=== PATIENT | female | born 1935 | race Caucasian/White ===

== ENCOUNTER 2017-06-13 10:50 | Outpatient (RCR) | payer MEDICARE, BC ==
[~2017-06-13] VITALS: Ht 160 cm; Wt 83.2 kg
[~2017-06-13 10:50] MED LIST: MULTIPLE VITAMI1 TAB PO; PRILOSEC 20MG20 MG PO
[2017-06-13] MEDS ORDERED: POLY-IRON 150150 MG PO (11:07)
[2017-06-13 11:10] VITALS: BP 124/60
[2017-06-13 13:00] VITALS: BP 130/70
[2017-06-16 10:51] VITALS: BP 123/72
[2017-06-16 12:06] VITALS: BP 136/63
[2017-06-19 10:56] VITALS: BP 120/63
[2017-06-22 11:20] VITALS: BP 140/67
[2017-06-22 12:10] VITALS: BP 147/78
--- NOTE | 2017-06-22 12:11 | NUR ---
AFTER IV DC'D, COTTON BALL TO SITE, PATIENT IMMEDIATELY WALKED TO BATHROOM AND DRIPPING BLOOD WAS NOTED, AGAIN DIRECT PRESSURE TO IV SITE WHICH EASILY STOPPED THE BLEEDING, PATIENT INFORMED TO REMOVE COBAN AFTER ABOUT 5 MINS, THERE IS NO FURTHER BLEEDING NOTED, SHE IS DISMISSED AMBULAOTRY TO CARE OF FAMILY
== END 2017-06-22 13:00 | disposition home or self-care (01) ==
LOC: AMSURD 10:50 → EDSTATUS 11:02 → AMSURD 06-22 13:00
DX: D50.0 Iron deficiency anemia secondary to blood loss (chronic) (principal)
CPT/HCPCS: J2916; J7050

== ENCOUNTER → 2017-07-03 | Outpatient (CLI) | payer MEDICARE, BC ==
[2017-06-22 12:10] VITALS: BP 147/78
[~2017-07-03] MED LIST changes: +POLY-IRON 150150 MG PO
[2017-07-03 18:36] LABS: EOS # 0.1 (0.04-0.40); EOS % 0.9 % (1.0-5.0); HEMATOCRIT 34.6 % (37.0-47.0); HEMOGLOBIN 10.1 g/dL (12.5-16.0); LYMPH# 2.3 (1.50-4.00); MEAN CELL VOLUME 88 fl (78-100); MEAN CORPUSCULAR HEMOGLOBIN 26 pg (27-31); MONO # 0.7 (0.20-0.80); NEU # 6.2 (1.40-6.50); PLATELET COUNT 387 K/mm3 (130-400); RED BLOOD COUNT 3.93 M/mm3 (4.10-5.30); WHITE BLOOD COUNT 9.4 K/mm3 (4.8-10.8)
[2017-07-03 19:24] LABS: MEAN CORPUSCULAR HGB CONC 29 g/dL (33-37)
== END ==
LOC: LAB 16:41
PROVIDERS: Internal Medicine
DX: D50.0 Iron deficiency anemia secondary to blood loss (chronic) (principal)

== ENCOUNTER → 2017-09-19 | Outpatient (CLI) | payer MEDICARE, BC | LOC: MAMMO 15:46 | DX: Z12.31 Encounter for screening mammogram for malignant neoplasm of breast (principal); Z85.3 Personal history of malignant neoplasm of breast; Z98.890 Other specified postprocedural states ==

== ENCOUNTER → 2018-02-27 | Outpatient (CLI) | payer MEDICARE, BC ==
[2018-02-27 13:24] LABS: EOS # 0.2 (0.04-0.40); EOS % 2.1 % (1.0-5.0); HEMOGLOBIN 11.8 g/dL (12.5-16.0); LYMPH# 2.7 (1.50-4.00); MEAN CELL VOLUME 80 fl (78-100); MEAN CORPUSCULAR HEMOGLOBIN 25 pg (27-31); MEAN CORPUSCULAR HGB CONC 31 g/dL (33-37); MEAN PLATELET VOLUME 10.6 fl (7.4-10.4); MONO # 0.6 (0.20-0.80); NEU # 4.9 (1.40-6.50); PLATELET COUNT 339 K/mm3 (130-400); RED BLOOD COUNT 4.74 M/mm3 (4.10-5.30); RED CELL DISTRIBUTION WIDTH 15.7 % (11.5-14.5); WHITE BLOOD COUNT 8.4 K/mm3 (4.8-10.8)
== END ==
LOC: LAB 13:07
PROVIDERS: Internal Medicine
DX: D50.0 Iron deficiency anemia secondary to blood loss (chronic) (principal)

== ENCOUNTER → 2018-05-14 | Outpatient (CLI) | payer MEDICARE, BC ==
[2018-05-14 13:41] LABS: EOS # 0.1 (0.04-0.40); EOS % 0.8 % (1.0-5.0); HEMATOCRIT 36.7 % (37.0-47.0); HEMOGLOBIN 11.1 g/dL (12.5-16.0); LYMPH# 1.8 (1.50-4.00); MEAN CELL VOLUME 78 fl (78-100); MEAN CORPUSCULAR HGB CONC 30 g/dL (33-37); MEAN PLATELET VOLUME 10.9 fl (7.4-10.4); MONO # 0.7 (0.20-0.80); PLATELET COUNT 365 K/mm3 (130-400); RED BLOOD COUNT 4.71 M/mm3 (4.10-5.30); WHITE BLOOD COUNT 7.6 K/mm3 (4.8-10.8)
[2018-05-14 13:54] LABS: ALBUMIN 4.1 g/dL (3.5-5.0); POTASSIUM 3.2 mmol/L (3.6-5.0); TOTAL BILIRUBIN 0.4 mg/dL (0.2-1.3); TOTAL PROTEIN 7.2 g/dL (6.3-8.2)
[2018-05-14 13:56] LABS: MEAN CORPUSCULAR HEMOGLOBIN 24 pg (27-31); RED CELL DISTRIBUTION WIDTH 20.9 % (11.5-14.5)
== END ==
LOC: LAB 13:15
PROVIDERS: Internal Medicine
DX: D50.0 Iron deficiency anemia secondary to blood loss (chronic) (principal)

== ENCOUNTER → 2018-09-04 | Outpatient (CLI) | payer MEDICARE, BC | LOC: MAMMO 09:09 | DX: Z12.31 Encounter for screening mammogram for malignant neoplasm of breast (principal) ==

== ENCOUNTER → 2018-09-04 | Outpatient (CLI) | payer MEDICARE, BC | LOC: RAD 09:10 → MAMMO 10:00 → RAD 10:00 | DX: Z13.820 Encounter for screening for osteoporosis (principal); M85.80 Other specified disorders of bone density and structure, unspecified site ==

== ENCOUNTER → 2019-04-09 | Outpatient (CLI) | payer MEDICARE, BC ==
[2019-04-09 09:09] LABS: HEMATOCRIT 45.4 % (37.0-47.0); HEMOGLOBIN 14.2 g/dL (12.5-16.0)
== END ==
LOC: LAB 09:00
PROVIDERS: Internal Medicine
DX: D50.0 Iron deficiency anemia secondary to blood loss (chronic) (principal)

== ENCOUNTER → 2021-03-15 | Outpatient (CLI) | payer MEDICARE, BC | LOC: RAD 06:52 | DX: R13.10 Dysphagia, unspecified (principal) ==